=== PATIENT | female | born 1990 | race African-American/Black ===

== ENCOUNTER 2017-03-29 20:09 | Emergency (ER) | payer MEDICAID ==
[~2017-03-29] VITALS: Ht 152.4 cm; Wt 55.5 kg
[2017-03-29 20:16] VITALS: Ht 152.4 cm; Wt 55.5 kg
[2017-03-29] MEDS ORDERED: FAMOTIDINE 20 MG TAB PO ONE (22:30)
[2017-03-29 23:08] LABS: URINE BLOOD (Dip) POC Negative (NEGATIVE)
[2017-03-29] MEDS ORDERED: FAMO-96 PO (23:31)
--- NOTE | 2017-03-29 23:31 | ERD ---
ER Documentation Chief Complaint Date/Time DATE: 03/29/17 TIME: 23:27 Chief Complaint abdominal pain x 2 weeks HPI This 27-year-old female presents to emergency department for abdominal cramping intermittently 2 weeks, patient reports that pain is nonexistent at this time but was when she walked into the emergency room. Patient reports cramping has been improved with increased fluids and Gatorade. Patient thought she might have been dehydrated. Patient reports pain is localized in epigastric region, denies history of GERD, heartburn, cough, or postnasal drip. ROS All systems reviewed and are negative except as per history of present illness. Medications Home Meds Active Scripts Famotidine* (Pepcid*) 20 Mg Tablet, 20 MG PO BID for 4 Days, TAB Prov:LAURA,TRI 03/29/17 Allergies Allergies: Coded Allergies: No Known Drug Allergies (Verified Allergy, Unknown, 03/29/17) PMhx/Soc Medical and Surgical Hx: pt denies Medical Hx, pt denies Surgical Hx Hx Alcohol Use: No Hx Substance Use: No Hx Tobacco Use: No Physical Exam Vitals Vitals stable, triage notes reviewed Physical Exam Const: Well-appearing, well-hydrated, in no acute distress Head: Atraumatic Eyes: Normal Conjunctiva, PERRLA, EOMI ENT: Normal External Ears, Nose and Mouth, mucous membranes moist. Neck: Resp: Respirations even and unlabored no respiratory distress Cardio: Regular rate and rhythm, no murmurs Abd: Soft, non tender, non distended. No McBurney's point tender Skin: Back: Ext: Neur: Awake and alert Psych: Normal Mood and Affect Results 24 hrs Laboratory Tests Test 03/29/17 23:13 Bedside Urine pH (LAB) 6.5 Bedside Urine Protein (LAB) Negative Bedside Urine Glucose (UA) Negative Bedside Urine Ketones (LAB) Negative Bedside Urine Blood Negative Bedside Urine Nitrite (LAB) Negative Bedside Urine Leukocyte Esterase (L Negative Current Medications Medications (Trade) Dose Ordered Sig/Jonelle Route PRN Reason Start Time Stop Time Status Last Admin Dose Admin Famotidine (Pepcid) 40 mg ONCE ONCE PO 03/29/17 22:30 03/29/17 22:31 DC 03/29/17 22:59 Interpretation text, urinalysis negative for evidence of microscopic hematuria, leukocytosis or nitrates Procedures/MDM This pleasant 27-year-old female comes in for intermittent epigastric pain. Denies any past medical history of heartburn. Has not tried [id number] medication for symptomatic recently. There is little suspicion for acute MO, cholecystitis, pancreatitis, physical exam findings are unremarkable at this time. Urinalysis negative for any evidence of infection, no suspicion for urinary tract infection. Patient was given a trial of H2 carley while in emergency department and discharged with Pepcid 20 mg 1 tab p.o. twice daily for 4 days patient to follow-up with her primary clinic within the next 4 days for reevaluation and full prescription and medication as indicated. Increase fluids, increase rest, diet discussed, return to emergency department for worsening of symptoms, chest pain shortness of breath, palpitations, or dizziness. I feel the patient is stable for discharge at this time. I have discussed results, examination findings, the treatment plan with the patient and family present prior to discharge. Indications for emergent reevaluation, side effects of medication were also discussed. All questions were answered. Patient verbalizes understanding and agrees with plan of care. Departure Diagnosis: Primary Impression: Epigastric abdominal pain Condition: Fair Patient Instructions: Epigastric Pain (Uncertain Cause) [facility] Thank you for for coming to [facility] for your care today. Please ask your nurse or provider if you have questions about your care today and do not leave until all your questions have been answered. Please use any medications given as directed and follow-up with your doctor (or the doctor you were referred to) in the next 2-3 days. If you do not have a primary care doctor you may follow up at the [facility] (listed below). You may also use motrin and tylenol as needed for fever and/or pain unless instructed otherwise by your provider or nurse. Indications for more urgent follow-up have been discussed, but you may return to the Emergency Department at ANY time for any worrisome or worsening symptoms. If you have abdominal pain, please know that no test or exam you received is perfect and you should follow up within 8 hours for continued pain. If you had any imaging studies today, such as an X-Ray or CT Scan, these studies will be reviewed later by a radiologist. You will be called if there are important findings that were not identified today, so make sure the contact information you provided at registration is correct. If you received any narcotic pain control medicine today, such as Vicodin, Morphine or Dilaudid, your coordination and judgment may be affected for a number of hours. Please do not drive or operate heavy machinery, and you may want someone to assist you at home. If you were given a prescription for narcotic medication, be aware that it is very addictive- use sparingly and only if necessary. TRI SANCHEZ Mar 29, 2017 23:31
[2017-03-29 23:48] VITALS: BP 115/80; PULSE 72; RESP 16
== END 2017-03-29 23:49 | disposition home or self-care (01) ==
LOC: FTE 20:09
DX: R10.13 Epigastric pain (principal)
CPT/HCPCS: 81003; Z7610; 99283